=== PATIENT | male | born 1985 | race Caucasian/White ===

== ENCOUNTER 2023-01-26 02:29 | Emergency (ER) | payer BC, OTHER ==
[2023-01-26] MEDS ORDERED: Sodium Chloride 0.9% 1,000 ML IV ONE (02:52)
[2023-01-26] MEDS ORDERED: Ketorolac 30 MG/ML SDV IVPUSH ONE (02:52)
[2023-01-26 03:20] LABS: CARBON DIOXIDE,CO2 26.6 mmol/L (21.0-32.0); POTASSIUM,K 4.3 mmol/L (3.5-5.1)
[2023-01-26] MEDS ORDERED: Cyclobenzaprine 10 MG Tab PO ONE (05:23)
== END 2023-01-26 05:40 | disposition home or self-care (01) ==
LOC: MW.ED 02:29
DX: R10.31 Right lower quadrant pain (principal)
CPT/HCPCS: 36415; 74176; 80053; 80305; 81003; 83690; 85025; 96361; 96374; 99284; A9270; J1885; J7030; 99283